=== PATIENT | female | born 1960 | race Caucasian/White ===

== ENCOUNTER 2017-05-08 08:20 | Outpatient (CLI) | payer OTHER ==
[2017-05-08 09:31] LABS: eGFR (African) > 60; eGFR (Non-African) > 60
[2017-05-08 18:02] LABS: BASO % 1.2 % (0.0-1.5); EOS % 2.6 % (0.0-6.8); MCH. 29.7 pg (28.0-34.0); MCV 89.2 fL (80.0-100.0); MONOCYTE % 5.6 % (0.0-11.0); MONOCYTE ABS # 0.31 thou/uL (0.00-0.90); PLATELET COUNT 172 thou/uL (130-400)
== END 2017-05-08 08:23 ==
LOC: LAB 08:20
PROVIDERS: ATTEND Physician Assistant
DX: Z00.00 Encounter for general adult medical examination without abnormal findings (principal); E11.9 Type 2 diabetes mellitus without complications; L65.9 Nonscarring hair loss, unspecified; R53.83 Other fatigue; E78.2 Mixed hyperlipidemia; Z13.6 Encounter for screening for cardiovascular disorders
CPT/HCPCS: 36415; 80053; 80061; 83036; 84439; 84443; 84481; 85025